=== PATIENT | male | born 1945 | race Caucasian/White ===

== ENCOUNTER 2019-05-12 00:57 | Day surgery (SDC) | payer MEDICARE, SELFPAY ==
[2019-05-07 14:17] VITALS: BMI 26.0
[2019-05-12 07:27] VITALS: BP 110/75; PULSE 77; RESP 16; TEMP 36.4; O2SAT 98
--- NOTE | 2019-05-12 07:36 | WPDANESEPPF ---
Anes - Initial Pre Proc Eval Procedure: Operation Date: 05/12/19 08:30 Proposed Procedures p Screening Colonoscopy - Agustín Farias MD Date/Time: 05/12/19 07:36 Surgeon: Agustín Farias MD Pre Op Diagnosis: Hx of Polyps Patient Data Age: 73 Gender: M Height: 5 ft 9 in Weight: 75.8 kg Last Vital Signs Temp 97.5 F L 05/12/19 07:27 Pulse 77 05/12/19 07:27 Resp 16 05/12/19 07:27 BP 110/75 05/12/19 07:27 Pulse Ox 98 05/12/19 07:27 Allergies Allergy/AdvReac Type Severity Reaction Status Date / Time No Known Allergies Allergy Unknown Unverified 10/22/13 09:09 Home Medications Medication Instructions Recorded Confirmed Type multivit with min-folic acid 0.4 mg PO DAILY 05/07/19 05/07/19 History [Adult One Daily Multivitamin] Patient hx anesthesia problems: none Family hx anesthesia problems: none [facility] Past Medical History Medical History (Updated 05/12/19 @ 07:44 by Arias Hannah MD) Healthy adult Anes - Eval Final PreProcedure Day of Procedure 05/12/19 07:36 Patient weight: normal Heart: regular rate and rhythm Lungs: clear to auscultation Airway: Mallampati scale class II Neurological: alert and oriented Last oral intake: >/= 8 hours ASA classification: I Emergent: no Anesthetic plan: proceed Anesthesia type and monitoring: general GIVS and standard monitoring Informed Consent: The patient's anesthetic plan and its attendant risks and benefits were discussed with the patient/family/POA. Questions were solicited and answers provided to the satisfaction of the patient/family/POA.
[2019-05-12] MEDS: LACTATED RINGERS 1,000 ML 150 ML IV CONT (07:40)
--- NOTE | 2019-05-12 07:49 | PM.HPGS ---
History of Present Illness History of Present Illness Consent: Risks, benefits, and alternatives have been discussed and questions answered. Patient agrees to proceed with procedure. Chief complaint: Hx of Polyps Narrative: Mc Person is a 73 year old male for screening colonoscopy. He had a polyp removed several years ago [facility] Past Medical History Medical History (Updated 05/12/19 @ 07:50 by Agustín Farias MD) Healthy adult Meds Home Medications and Allergies Home Medications Medication Instructions Recorded Confirmed Type multivit with min-folic acid 0.4 mg PO DAILY 05/07/19 05/07/19 History [Adult One Daily Multivitamin] Allergies Allergy/AdvReac Type Severity Reaction Status Date / Time No Known Allergies Allergy Unknown Unverified 10/22/13 09:09 Vital Signs Vital Signs - 24 hr 05/12/19 07:27 Temperature 36.4 C L Pulse Rate 77 Respiratory Rate 16 Blood Pressure 110/75 Pulse Oximetry 98 Exam Resp: Auscultation: clear to auscultation bilaterally Cardio: Rate: regular rate Rhythm: regular rhythm GI: GI Palp: Yes Soft to palpation and No Tenderness to palpation present (GI) Assessment and Plan Assessment and plan (1) Personal history of colonic polyps: Code(s): Z86.010 - Personal history of colonic polyps Status: Acute Assessment and Plan: Colonoscopy with possible biopsy or polypectomy or cautery or injection of substances.
[2019-05-12 08:36] VITALS: BP 98/63; PULSE 78; RESP 19; O2SAT 96
[2019-05-12 08:45] VITALS: BP 108/68; PULSE 67; RESP 14; O2SAT 97
[2019-05-12 08:55] VITALS: BP 105/70; PULSE 65; RESP 18; O2SAT 98
[2019-05-12 09:05] VITALS: BP 110/73; PULSE 60; RESP 20; O2SAT 98
== END 2019-05-12 09:13 | disposition home or self-care (01) ==
PROVIDERS: PCP Nurse Practitioner Adult Health; Visit Provider Internal Medicine Gastroenterology
PROC: 0DJD8ZZ Inspection of Lower Intestinal Tract, Via Natural or Artificial Opening Endoscopic (ICD-10-PCS; CPT 45378; principal; 2019-05-12 08:30)
DX: Z12.11 Encounter for screening for malignant neoplasm of colon (principal); K64.8 Other hemorrhoids; Z86.010 Personal history of colon polyps
CPT/HCPCS: G0105; J2704; J7120

== ENCOUNTER 2019-11-22 14:45 | Emergency (ER) | payer MEDICARE, SELFPAY ==
--- NOTE | ~2019-11-22 | XR_ITS ---
EXAMINATION: XR ankle LT min 3V DATE: 11/22/2019 15:27 INDICATION: Left ankle injury. TECHNIQUE: 4 views of left ankle were obtained. COMPARISON: None. FINDINGS: Bone alignment is normal. There are calcifications distal to medial malleolus. 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 There are enthesophytes at the posterior plantar aspects of calcaneal tuber osity. There is a soft tissue defect medial to tibial metaphysis with 1 mm density. IMPRESSION: 1. Soft tissue defect medial to tibial metaphysis with 1 mm density that may be a foreign body or suzan cification. 2. Calcification distal to medial malleolus that may be a chronic finding or less likely an acute avu lsion fracture. Reviewed, dictated and finalized at location A. IMPRESSION: 1. Soft tissue defect medial to tibial metaphysis with 1 mm density that may be a foreign body or calcification. 2. Calcification distal to medial malleolus that may be a chronic finding or le ss likely an acute avulsion fracture.
--- NOTE | ~2019-11-22 | XR_ITS ---
EXAMINATION: XR tibia fibula LT 2V DATE: 11/22/2019 15:27 INDICATION: Left lower leg injury. TECHNIQUE: 2 views of left tibia and fibula were obtained. COMPARISON: None. FINDINGS: Bone alignment is normal. There are calcifications distal to medial malleolus. There is a s oft tissue defect medial to tibial metaphysis with 1 mm density. There is mild left knee osteoarthrit is. IMPRESSION: 1. Soft tissue defect medial to tibial metaphysis with 1 mm density that may be a foreign body or suzan cification. 2. Calcifications distal to medial malleolus that may be a chronic finding or less likely an acute av ulsion fracture. Reviewed, dictated and finalized at location A. IMPRESSION: 1. Soft tissue defect medial to tibial metaphysis with 1 mm density that may be a foreign body or calcification. 2. Calcifications distal to medial malleolus that may be a chronic finding or l ess likely an acute avulsion fracture.
--- NOTE | ~2019-11-22 | XR_ITS ---
EXAMINATION: XR knee LT 3V DATE: 11/22/2019 15:27 INDICATION: Left knee pain. TECHNIQUE: 3 views of left knee were obtained. COMPARISON: None. FINDINGS: Bone alignment is normal. No fracture. There is mild tricompartmental osteoarthritis. No kn ee joint effusion. IMPRESSION: 1. Mild left knee osteoarthritis. Reviewed, dictated and finalized at location A.
[2019-11-22 14:55] VITALS: BP 117/77; PULSE 74; RESP 18; TEMP 36.3; O2SAT 97
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
[2019-11-22] MEDS: TETANUS,DIPHTHERIA,AC PERTUSSIS ADULT (0.5 ML) BOOSTRIX IM (15:36)
[2019-11-22 17:49] VITALS: BP 120/76; PULSE 72; RESP 18; O2SAT 100
== END 2019-11-22 17:51 | disposition home or self-care (01) ==
PROVIDERS: Emergency Provider Emergency Medicine; PCP Nurse Practitioner Adult Health
DX: S82.892A Other fracture of left lower leg, initial encounter for closed fracture (principal); S91.012A Laceration without foreign body, left ankle, initial encounter; Z23 Encounter for immunization; V48.2XXA Person on outside of car injured in noncollision transport accident in nontraffic accident, initial encounter
CPT/HCPCS: 12001; 29515; 73562; 73590; 73610; 90471; 90715; 96365; 96375; 99284; J0131; J0690

== ENCOUNTER 2022-03-05 08:03 | Outpatient (CLI) | payer MEDICARE, SELFPAY ==
--- NOTE | 2022-03-05 13:32 | P.METCHAL_ITS ---
Methacholine Procedure Perform Procedure Performed Methacholine Challenge Methacholine Challenge Methacholine Challenge: This is a methacholine challenge test. The test was performed and interpreted in accordance with the 2017 ERS technical standard, endorsed by the [employer], using the GLI 2012 reference equations. Testing was performed with increasing doses of nebulized methacholine following a quadrupling dosage protocol. The methacholine dose was delivered via the [employer] nebulizer using a 1-minutes tidal breathing protocol. The best post-methacholine FEV1 values were used to determine the change from the post diluent FEV1. The delivered dose of methacholine was used to calculate the provocative dose causing a 20% fall in FEV1 (PD20). Findings: Baseline FEV1 2.77 L, 94% predicted. Post diluent FEV1 2.68 L Post 1.81 mcg methacholine FEV1 2.65 L, decreased 1% Post 7.26 mcg methacholine FEV1 2.71 L, increased 1% Post 29.03 mcg methacholine FEV1 2.63 L, decreased 2% Post 116.1 mcg methacholine FEV1 2.65 L, decreased 1% Post 464.4 mcg methacholine FEV1 2.52 L, decreased 5% Post albuterol nebulization FEV1 2.54 L Impression: The PD20 is > 400 mcg which is categorized as normal airway hyperresponsiveness. There are no prior methacholine challenge studies for comparison
== END 2022-03-05 08:04 | disposition home or self-care (01) ==
PROVIDERS: PCP Nurse Practitioner Adult Health; Visit Provider Internal Medicine Pulmonary Disease
DX: R06.09 Other forms of dyspnea (principal); R05.9 Cough, unspecified; R84.9 Unspecified abnormal finding in specimens from respiratory organs and thorax; T78.40XA Allergy, unspecified, initial encounter
CPT/HCPCS: 94070; 94375; J7674